=== PATIENT | female | born 1985 | race Caucasian/White ===

== ENCOUNTER 2019-08-25 03:26 | Inpatient (IN) | payer BC ==
[~2019-08-25 03:26] MED LIST: Bupivacaine 0.25% 10 ML SDV ONE
[2019-08-25] MEDS ORDERED: Ondansetron 4 MG/2 ML SDV IVPUSH PRN ×2 (03:32→07:07)
[2019-08-25] MEDS ORDERED: Lidocaine 1% 50 ML MDV INJECT ONE (03:32)
[2019-08-25] MEDS ORDERED: Sodium Chloride 0.9% 10 ML Syringe FLUSH PRN (03:32)
[2019-08-25] MEDS ORDERED: Ampicillin 2 GM in Sodium Chloride 0.9% 100 ML IV ONE (03:32)
[2019-08-25] MEDS ORDERED: Calcium Carbonate 500 MG Tab.Chew PO PRN (03:32)
[2019-08-25] MEDS ORDERED: Nalbuphine 10 MG/ML Syringe IVPUSH PRN (03:32)
[2019-08-25] MEDS ORDERED: Oxytocin/Lactated Ringers 10 UNIT/1,000 ML BAG IV SCH ×2 (03:45)
[2019-08-25] MEDS: Lactated Ringers 1,000 ML IV SCH ×4 (06:17→13:28)
--- NOTE | 2019-08-25 06:39 | PCM.LDHP ---
L&D History of Present Illness - General Date of Service: 08/25/19 Admit Problem/Dx: Patient Status Order with Admit Dx/Problem 08/25/19 03:33 Patient Status [ADT] Routine Admission Diagnosis/Problem Admission Diagnosis/Problem Source of Information: Patient History Limitations: Reports: No Limitations - History of Present Illness Introduction:: Patient is a 34 y/o at 39 3/7 wks who presented in early labor / also supposed to be induced today. Doing well. No major issues - Related Data Allergies/Adverse Reactions: Allergies Allergy/AdvReac Type Severity Reaction Status Date / Time Dairy Products Allergy Diarrhea Verified 08/25/19 03:35 Home Medications: Home Meds Vits #93/Iron Fum/FA [ Formula Tablet] 1 each PO 08/17/19 [History] Past Medical History [employer] History: Reports: , Spontaneous : 4 Para: 2 LMP (Approximate): Other OB/BYN History: polyhydramnios Psychiatric History: Reports: Depression - Infectious Disease History Infectious Disease History: Reports: Chicken Pox - Past Surgical History HEENT Surgical History: Reports: Myringotomy w Tube(s), Oral Surgery (tooth extraction), Other (See Below) Other HEENT Surgeries/Procedures: cauterization of adenoids 1986 Social & Family History - Tobacco Use Smoking Status *Q: Never Smoker - Alcohol Use Alcohol Use History: No - Recreational Drug Use Recreational Drug Use: No H&P Review of Systems - Review of Systems: Review Of Systems: See Below General: Reports: No Symptoms Pulmonary: Reports: No Symptoms Cardiovascular: Reports: No Symptoms Gastrointestinal: Reports: No Symptoms Genitourinary: Reports: No Symptoms Musculoskeletal: Reports: No Symptoms Psychiatric: Reports: Anxiety Neurological: Reports: No Symptoms L&D Exam - Exam Exam: See Below - Vital Signs Vital Signs: Last Vital Signs Temp 36.6 C 08/25/19 03:33 Pulse 84 08/25/19 03:33 Resp 16 08/25/19 03:33 BP 118/81 08/25/19 03:33 Pulse Ox 98 08/25/19 03:33 Weight: 91.989 kg - OB Specific Contraction Intensity: Mild Movement: Active Heart Tones: Present Heart Tones per Min: 125 Heart Rate (FHR) Variability: Moderate (6-25 bmp) Presentation: Vertex - Saha Score Saha Score Cervix Position: Midposition Saha Score Consistency: Soft Saha Score Effacement: 51-70% Saha Score Dilation: 1-2 cm Saha Score Infant's Station: -3 Saha Score Total: 6 - Exam General: Alert, Oriented, Cooperative Lungs: Clear to Auscultation, Normal Respiratory Effort Cardiovascular: Regular Rate, Regular Rhythm GI/Abdominal Exam: Soft, Non-Tender Genitourinary: Normal external exam Extremities: Normal Inspection Skin: Warm, Dry, Intact - Patient Data Lab Results Last 24 hrs: Laboratory Results - last 24 hr 08/25/19 08/25/19 Range/Units 03:50 03:50 WBC 11.53 H (3.98-10.04) K/mm3 RBC 4.32 (3.98-5.22) M/mm3 Hgb 12.1 (11.2-15.7) gm/dl Hct 37.2 (34.1-44.9) % MCV 86.1 (79.4-94.8) fl MCH 28.0 (25.6-32.2) pg MCHC 32.5 (32.2-35.5) g/dl RDW Std Deviation 41.5 (36.4-46.3) fL Plt Count 326 (182-369) K/mm3 MPV 10.5 (9.4-12.3) fl Neut % (Auto) 69.3 (34.0-71.1) % Lymph % (Auto) 21.9 (19.3-51.7) % [place] % (Auto) 7.3 (4.7-12.5) % Eos % (Auto) 0.9 (0.7-5.8) Baso % (Auto) 0.3 (0.1-1.2) % Neut # (Auto) 7.99 H (1.56-6.13) K/mm3 Lymph # (Auto) 2.53 (1.18-3.74) K/mm3 [place] # (Auto) 0.84 H (0.24-0.36) K/mm3 Eos # (Auto) 0.10 (0.04-0.36) K/mm3 Baso # (Auto) 0.03 (0.01-0.08) K/mm3 Blood Type O NEGATIVE Result Diagrams: 08/25/19 03:50 - Problem List (1) 39 weeks gestation of SNOMED Code(s): 57890816 ICD Code: Z3A.39 - 39 WEEKS GESTATION OF Status: Acute Current Visit: Yes (2) Rh negative state in antepartum period SNOMED Code(s): 510659725 ICD Code: O26.899 - OTH RELATED CONDITIONS, UNSPECIFIED TRIMESTER; Z67.91 - UNSPECIFIED BLOOD TYPE, RH NEGATIVE Status: Acute Current Visit: Yes (3) GBS (group B Streptococcus carrier), +RV culture, currently SNOMED Code(s): 5272352625603, 231606772, 0392388765887 ICD Code: O99.820 - STREPTOCOCCUS B CARRIER STATE COMPLICATING Status: Acute Current Visit: Yes (4) Polyhydramnios SNOMED Code(s): 13954467 ICD Code: O40.9XX0 - POLYHYDRAMNIOS, UNSP TRIMESTER, NOT APPLICABLE OR UNSP Status: Acute Current Visit: Yes Qualifiers: Fetus number: single or unspecified fetus Trimester: third trimester Qualified Code(s): O40.3XX0 - Polyhydramnios, third trimester, not applicable or unspecified Problem List Initiated/Reviewed/Updated: Yes Orders Last 24hrs: Active Orders 24 hr Category Date Time Status Patient Status [ADT] Routine ADT 08/25/19 03:33 Active Activity as Tolerated [RC] PFP Care 08/25/19 03:33 Active Communication Order [RC] ASDIRECTED Care 08/25/19 03:33 Active Heart Tones [RC] ASDIRECTED Care 08/25/19 03:33 Active Notify Provider [RC] PFP Care 08/25/19 03:33 Active Notify Provider [RC] PRN Care 08/25/19 03:33 Active Peripheral IV Care [RC] . DIRECTED Care 08/25/19 03:33 Active Urinary Catheter Assessment [RC] ASDIRECTED Care 08/25/19 03:32 Active Vital Signs [RC] PER UNIT ROUTINE Care 08/25/19 03:33 Active Regular Diet [DIET] Diet 08/25/19 Breakfast Active PATIENT RETYPE [BBK] Routine Lab 08/25/19 05:22 Ordered RAPID PLASMA REAGIN,RPR [CHEM] Routine Lab 08/25/19 03:50 Received TYPE AND SCREEN [BBK] Stat Lab 08/25/19 03:50 Results Ampicillin 1 gm Med 08/25/19 07:30 Active Sodium Chloride 0.9% [Normal Saline] 100 ml IV Q4H Calcium Carbonate [Tums] Med 08/25/19 03:32 Active 1,000 mg PO Q2H PRN Lactated Ringers [Ringers, Lactated] 1,000 ml Med 08/25/19 03:45 Active IV ASDIRECTED Nalbuphine [Nubain] Med 08/25/19 03:32 Active 10 mg IVPUSH Q2H PRN Ondansetron [Zofran] Med 08/25/19 03:32 Active 4 mg IVPUSH Q4H PRN Oxytocin/Lactated Ringers [Pitocin in LR 10 Units/1,000 Med 08/25/19 03:45 Active ML] 10 unit in 1,000 ml IV .CONTINUOUS Oxytocin/Lactated Ringers [Pitocin in LR 10 Units/1,000 Med 08/25/19 03:45 Active ML] 10 unit in 1,000 ml IV TITRATE Sodium Chloride 0.9% [Saline Flush] Med 08/25/19 03:32 Active 10 ml FLUSH ASDIRECTED PRN Electronic Heart Tones Ext w TOCO [WOMSER] Oth 08/25/19 03:33 Ordered Routine Electronic Heart Tones Internal [WOMSER] Per Unit Oth 08/25/19 03:33 Ordered Routine Peripheral IV Insertion Adult [OM.PC] Routine Oth 08/25/19 03:33 Ordered Resuscitation Status Routine Resus Stat 08/25/19 03:32 Ordered Medication Orders Calcium Carbonate/Glycine (Tums) 1,000 mg PO Q2H PRN PRN Reason: Indigestion Ampicillin Sodium 1 gm/ Sodium (Chloride) 100 mls @ 200 mls/hr IV Q4H CLAIR Oxytocin/Lactated Ringer's (Pitocin In Lr 10 Units/1,000 Ml) 10 unit in 1,000 mls @ 12 mls/hr IV TITRATE CLAIR; Protocol Last Admin: 08/25/19 06:18 Dose: 2 munits/min, 12 mls/hr Documented by: BENJA Oxytocin/Lactated Ringer's (Pitocin In Lr 10 Units/1,000 Ml) 10 unit in 1,000 mls @ 100 mls/hr IV .CONTINUOUS CLAIR; Protocol Lactated Ringer's (Ringers, Lactated) 1,000 mls @ 100 mls/hr IV ASDIRECTED CLAIR Last Admin: 08/25/19 06:17 Dose: 100 mls/hr Documented by: BENJA Nalbuphine HCl (Nubain) 10 mg IVPUSH Q2H PRN PRN Reason: Pain Ondansetron HCl (Zofran) 4 mg IVPUSH Q4H PRN PRN Reason: Nausea/Vomiting Sodium Chloride (Saline Flush) 10 ml FLUSH ASDIRECTED PRN PRN Reason: Keep Vein Open Assessment/Plan Comment:: * Labs done * Ampicillin for GBS positive status * Was noted to have mild polyhydramnios around 36 weeks, has normalized on recent scan * Pitocin for augmentation, AROM when safe/able * Pain management per patient preference * Anticipate * Assess for need of additional Rhogam after delivery
[2019-08-25] MEDS ORDERED: ePHEDrine 50 MG/ML SDV IVPUSH PRN (07:07)
[2019-08-25] MEDS ORDERED: fentaNYL 100 MCG/2 ML SDV EPIDUR PRN (07:07)
--- NOTE | 2019-08-25 07:09 | PCM.PREANE ---
Preanesthetic Assessment - Anesthesia/Transfusion/Family Hx Anesthesia History: Prior Anesthesia Without Reaction Family History of Anesthesia Reaction: No Transfusion History: No Prior Transfusion(s) Intubation History: Unknown - Review of Systems General: No Symptoms (sore throat/seasonal allergies.) Pulmonary: No Symptoms Cardiovascular: Palpitations Gastrointestinal: No Symptoms (GERD with ) Neurological: No Symptoms Other: Reports: Sinus Problem (seasonal allergies), Depression - Physical Assessment NPO Status Date: 08/25/19 NPO Status Time: 07:30 Vital Signs: Last Vital Signs Temp 36.6 C 08/25/19 03:33 Pulse 84 08/25/19 03:33 Resp 16 08/25/19 03:33 BP 118/81 08/25/19 03:33 Pulse Ox 98 08/25/19 03:33 Height: 1.63 m Weight: 91.989 kg ASA Class: 2 Mental Status: Alert & Oriented x3 Airway Class: Mallampati = 2 Dentition: Reports: Normal Dentition, Caries Thyro-Mental Finger Breadths: 3 Mouth Opening Finger Breadths: 3 ROM/Head Extension: Full Lungs: Clear to Auscultation, Normal Respiratory Effort Cardiovascular: Regular Rate, Regular Rhythm, No Murmurs - Lab Values: Laboratory Last Values WBC 11.53 K/mm3 (3.98-10.04) H 08/25/19 03:50 RBC 4.32 M/mm3 (3.98-5.22) 08/25/19 03:50 Hgb 12.1 gm/dl (11.2-15.7) 08/25/19 03:50 Hct 37.2 % (34.1-44.9) 08/25/19 03:50 MCV 86.1 fl (79.4-94.8) 08/25/19 03:50 MCH 28.0 pg (25.6-32.2) 08/25/19 03:50 MCHC 32.5 g/dl (32.2-35.5) 08/25/19 03:50 RDW Std Deviation 41.5 fL (36.4-46.3) 08/25/19 03:50 Plt Count 326 K/mm3 (182-369) 08/25/19 03:50 MPV 10.5 fl (9.4-12.3) 08/25/19 03:50 Neut % (Auto) 69.3 % (34.0-71.1) 08/25/19 03:50 Lymph % (Auto) 21.9 % (19.3-51.7) 08/25/19 03:50 [place] % (Auto) 7.3 % (4.7-12.5) 08/25/19 03:50 Eos % (Auto) 0.9 (0.7-5.8) 08/25/19 03:50 Baso % (Auto) 0.3 % (0.1-1.2) 08/25/19 03:50 Neut # (Auto) 7.99 K/mm3 (1.56-6.13) H 08/25/19 03:50 Lymph # (Auto) 2.53 K/mm3 (1.18-3.74) 08/25/19 03:50 [place] # (Auto) 0.84 K/mm3 (0.24-0.36) H 08/25/19 03:50 Eos # (Auto) 0.10 K/mm3 (0.04-0.36) 08/25/19 03:50 Baso # (Auto) 0.03 K/mm3 (0.01-0.08) 08/25/19 03:50 Blood Type O NEGATIVE 08/25/19 03:50 Above labs reviewed and noted and within acceptable ranges to proceed with epidural if desired. - Allergies Allergies/Adverse Reactions: Allergies Allergy/AdvReac Type Severity Reaction Status Date / Time Dairy Products Allergy Diarrhea Verified 08/25/19 03:35 - Anesthesia Plan Pre-Op Medication Ordered: None - Acknowledgements Anesthesia Type Planned: Epidural Pt an Appropriate Candidate for the Planned Anesthesia: Yes Alternatives and Risks of Anesthesia Discussed w Pt/Guardian: Yes Pt/Guardian Understands and Agrees with Anesthesia Plan: Yes PreAnesthesia Questionnaire [employer] History: Reports: , Spontaneous , Other (See Below) Other OB/BYN History: polyhydramnios Psychiatric History: Reports: Depression Immunologic History: Reports: Other (See Below) Other Immunologic History: EBV mono - Infectious Disease History Infectious Disease History: Reports: Chicken Pox - Past Surgical History HEENT Surgical History: Reports: Myringotomy w Tube(s), Oral Surgery, Other (See Below) Other HEENT Surgeries/Procedures: cauterization of adenoids 1986 - SUBSTANCE USE Smoking Status *Q: Never Smoker Recreational Drug Use History: No - HOME MEDS Home Medications: Home Meds Vits #93/Iron Fum/FA [ Formula Tablet] 1 each PO 08/17/19 [History] - CURRENT (IN HOUSE) MEDS Current Meds: Current Medications Calcium Carbonate/Glycine (Tums) 1,000 mg PO Q2H PRN PRN Reason: Indigestion Ampicillin Sodium 1 gm/ Sodium (Chloride) 100 mls @ 200 mls/hr IV Q4H CLAIR Oxytocin/Lactated Ringer's (Pitocin In Lr 10 Units/1,000 Ml) 10 unit in 1,000 mls @ 12 mls/hr IV TITRATE CLAIR; Protocol Last Titration: 08/25/19 06:51 Dose: 4 munits/min, 24 mls/hr Documented by: Oxytocin/Lactated Ringer's (Pitocin In Lr 10 Units/1,000 Ml) 10 unit in 1,000 mls @ 100 mls/hr IV .CONTINUOUS CLAIR; Protocol Lactated Ringer's (Ringers, Lactated) 1,000 mls @ 100 mls/hr IV ASDIRECTED CLAIR Last Admin: 08/25/19 06:17 Dose: 100 mls/hr Documented by: Nalbuphine HCl (Nubain) 10 mg IVPUSH Q2H PRN PRN Reason: Pain Ondansetron HCl (Zofran) 4 mg IVPUSH Q4H PRN PRN Reason: Nausea/Vomiting Sodium Chloride (Saline Flush) 10 ml FLUSH ASDIRECTED PRN PRN Reason: Keep Vein Open Discontinued Medications Ampicillin Sodium 2 gm/ Sodium (Chloride) 100 mls @ 200 mls/hr IV ONETIME ONE Stop: 08/25/19 04:01 Last Admin: 08/25/19 04:05 Dose: 200 mls/hr Documented by: Lidocaine HCl (Xylocaine 1%) 50 ml INJECT ONETIME ONE Stop: 08/25/19 03:33
[2019-08-25] MEDS ORDERED: Phenylephrine 1 MG in Sodium Chloride 0.9% 10 ML IV SCH (07:15)
[2019-08-25] MEDS ORDERED: Bupivacaine/fentaNYL/NS 100 ML Bag EPIDUR SCH (07:15)
[2019-08-25] MEDS: Ampicillin 1 GM in Sodium Chloride 0.9% 100 ML IV SCH ×2 (08:40→12:23)
--- NOTE | 2019-08-25 17:31 | PCM.DEL ---
L & D Note - General Info Date of Service: 08/25/19 - Delivery Note Labor: Induced by ARM, Induced by Oxytocin Delivery Outcome: Livebirth Infant Delivery Mode: Spontaneous Presentation: Right Occiput Anterior (ALVARO) Nuchal Cord: None Anesthesia Type: Epidural Amniotic Fluid Description: Clear Episiotomy Type: None Laceration: 2nd Degree Suture type: Vicryl Suture size: 2-0 Placenta: Intact, Spontaneous Cord: 3 Vessels Estimated Blood Loss: 200 Resuscitation Needed: Yes [place]: Bulb Syringe, Stimulated, Warmed, [place] Used Delivery Comments (Free Text/Narrative):: Patient found to be complete and began pushing. With maternal pushing effort head delivered from an ALVARO presentation. No nuchal cord present. With gentle downward traction the shoulders and body delivered. Infant placed on maternal abdomen. Cord clamped and cut. Cord blood obtained. Placenta allowed time to separate and expelled intact. Inspection of the perineum showed a 2nd degree laceration which was repaired with a 2-0 Vicryl in the typical fashion - General Info Date of Service: 08/25/19 - Patient Data Vitals - Most Recent: Last Vital Signs Temp 36.6 C 08/25/19 03:33 Pulse 84 08/25/19 03:33 Resp 16 08/25/19 03:33 BP 118/81 08/25/19 03:33 Pulse Ox 98 08/25/19 03:33 Weight - Most Recent: 91.989 kg I&O - Last 24 Hours: Intake & Output 08/25/19 08/25/19 08/25/19 06:59 14:59 22:59 Intake Total 100 3500 Output Total 100 Balance 100 -100 3500 Lab Results Last 24 Hours: Laboratory Results - last 24 hr 08/25/19 08/25/19 Range/Units 03:50 03:50 WBC 11.53 H (3.98-10.04) K/mm3 RBC 4.32 (3.98-5.22) M/mm3 Hgb 12.1 (11.2-15.7) gm/dl Hct 37.2 (34.1-44.9) % MCV 86.1 (79.4-94.8) fl MCH 28.0 (25.6-32.2) pg MCHC 32.5 (32.2-35.5) g/dl RDW Std Deviation 41.5 (36.4-46.3) fL Plt Count 326 (182-369) K/mm3 MPV 10.5 (9.4-12.3) fl Neut % (Auto) 69.3 (34.0-71.1) % Lymph % (Auto) 21.9 (19.3-51.7) % [place] % (Auto) 7.3 (4.7-12.5) % Eos % (Auto) 0.9 (0.7-5.8) Baso % (Auto) 0.3 (0.1-1.2) % Neut # (Auto) 7.99 H (1.56-6.13) K/mm3 Lymph # (Auto) 2.53 (1.18-3.74) K/mm3 [place] # (Auto) 0.84 H (0.24-0.36) K/mm3 Eos # (Auto) 0.10 (0.04-0.36) K/mm3 Baso # (Auto) 0.03 (0.01-0.08) K/mm3 Blood Type O NEGATIVE Gel Antibody Screen Positive Med Orders - Current: Current Medications Calcium Carbonate/Glycine (Tums) 1,000 mg PO Q2H PRN PRN Reason: Indigestion Ephedrine Sulfate (Ephedrine Sulfate) 5 mg IVPUSH ASDIRECTED PRN PRN Reason: Hypotension Fentanyl (Sublimaze) 100 mcg EPIDUR Q3H PRN PRN Reason: Pain Last Admin: 08/25/19 09:42 Dose: 100 mcg Documented by: Fentanyl/Bupivacaine HCl (Fentanyl/Bupivacaine/Ns 2 Mcg-0.125% 100 Ml) 100 ml EPIDUR ASDIRECTED CLAIR Last Admin: 08/25/19 09:41 Dose: 100 ml Documented by: Ampicillin Sodium 1 gm/ Sodium (Chloride) 100 mls @ 200 mls/hr IV Q4H CLAIR Last Admin: 08/25/19 12:23 Dose: 200 mls/hr Documented by: Oxytocin/Lactated Ringer's (Pitocin In Lr 10 Units/1,000 Ml) 10 unit in 1,000 mls @ 12 mls/hr IV TITRATE CLAIR; Protocol Last Titration: 08/25/19 14:50 Dose: 83.33 munits/min, 500 mls/hr Documented by: Oxytocin/Lactated Ringer's (Pitocin In Lr 10 Units/1,000 Ml) 10 unit in 1,000 mls @ 100 mls/hr IV .CONTINUOUS CLAIR; Protocol Lactated Ringer's (Ringers, Lactated) 1,000 mls @ 100 mls/hr IV ASDIRECTED CLAIR Last Admin: 08/25/19 13:28 Dose: 999 mls/hr Documented by: Phenylephrine HCl 1 mg/ Sodium (Chloride) 10.1 mls @ 1 mls/sec IV TITRATE CLAIR; Protocol Nalbuphine HCl (Nubain) 10 mg IVPUSH Q2H PRN PRN Reason: Pain Last Admin: 08/25/19 10:30 Dose: 10 mg Documented by: Ondansetron HCl (Zofran) 4 mg IVPUSH Q4H PRN PRN Reason: Nausea/Vomiting Ondansetron HCl (Zofran) 4 mg IVPUSH ONETIME PRN PRN Reason: Nausea/Vomiting Sodium Chloride (Saline Flush) 10 ml FLUSH ASDIRECTED PRN PRN Reason: Keep Vein Open Discontinued Medications Ampicillin Sodium 2 gm/ Sodium (Chloride) 100 mls @ 200 mls/hr IV ONETIME ONE Stop: 08/25/19 04:01 Last Admin: 08/25/19 04:05 Dose: 200 mls/hr Documented by: Lidocaine HCl (Xylocaine 1%) 50 ml INJECT ONETIME ONE Stop: 08/25/19 03:33 - Problem List & Annotations (1) 39 weeks gestation of SNOMED Code(s): 62786104 Code(s): Z3A.39 - 39 WEEKS GESTATION OF Status: Acute Current Visit: Yes (2) Rh negative state in antepartum period SNOMED Code(s): 700421301 Code(s): O26.899 - OTH RELATED CONDITIONS, UNSPECIFIED TRIMESTER; Z67.91 - UNSPECIFIED BLOOD TYPE, RH NEGATIVE Status: Acute Current Visit: Y es (3) GBS (group B Streptococcus carrier), +RV culture, currently SNOMED Code(s): 7770478912943, 864431604, 4587395426703 Code(s): O99.820 - STREPTOCOCCUS B CARRIER STATE COMPLICATING Status: Acute Current Visit: Yes (4) Polyhydramnios SNOMED Code(s): 00403322 Code(s): O40.9XX0 - POLYHYDRAMNIOS, UNSP TRIMESTER, NOT APPLICABLE OR UNSP Status: Acute Current Visit: Yes Qualifiers: Fetus number: single or unspecified fetus Trimester: third trimester Qualified Code(s): O40.3XX0 - Polyhydramnios, third trimester, not applicable or unspecified (5) Meconium stained amniotic fluid, delivered, current hospitalization SNOMED Code(s): 669073480, 789646427 Code(s): O77.0 - LABOR AND DELIVERY COMPLICATED BY MECONIUM IN AMNIOTIC FLUID Status: Acute Current Visit: Yes (6) Vaginal delivery SNOMED Code(s): 772285375 Code(s): O80 - ENCOUNTER FOR FULL-TERM UNCOMPLICATED DELIVERY Status: Acute Current Visit: Yes - Problem List Review Problem List Initiated/Reviewed/Updated: Yes - My Orders Last 24 Hours: My Active Orders 08/25/19 03:32 Urinary Catheter Assessment [RC] ASDIRECTED Calcium Carbonate [Tums] 1,000 mg PO Q2H PRN Nalbuphine [Nubain] 10 mg IVPUSH Q2H PRN Ondansetron [Zofran] 4 mg IVPUSH Q4H PRN Sodium Chloride 0.9% [Saline Flush] 10 ml FLUSH ASDIRECTED PRN Resuscitation Status Routine 08/25/19 03:33 Patient Status [ADT] Routine Activity as Tolerated [RC] PFP Communication Order [RC] ASDIRECTED Heart Tones [RC] ASDIRECTED Notify Provider [RC] PFP Notify Provider [RC] PRN Peripheral IV Care [RC] . DIRECTED Vital Signs [RC] PER UNIT ROUTINE Electronic Heart Tones Ext w TOCO [WOMSER] Routine Electronic Heart Tones Internal [WOMSER] Per Unit Routine Peripheral IV Insertion Adult [OM.PC] Routine 08/25/19 03:45 Lactated Ringers [Ringers, Lactated] 1,000 ml IV ASDIRECTED Oxytocin/Lactated Ringers [Pitocin in LR 10 Units/1,000 ML] 10 unit in 1,000 ml IV .CONTINUOUS Oxytocin/Lactated Ringers [Pitocin in LR 10 Units/1,000 ML] 10 unit in 1,000 ml IV TITRATE 08/25/19 03:50 ANTIBODY IDENTIFICATION [BBK] Stat RAPID PLASMA REAGIN,RPR [CHEM] Routine TYPE AND SCREEN [BBK] Stat 08/25/19 Breakfast Regular Diet [DIET] 08/25/19 07:30 Ampicillin 1 gm Sodium Chloride 0.9% [Normal Saline] 100 ml IV Q4H 08/25/19 17:26 Patient Status Manage Transfer [TRANSFER] Routine - Assessment Assessment:: PPD#0 - Plan Plan:: * Routine cares * Breast feeding * Discharge home in 1-2 days * Assess for need of additional Rhogam after delivery
[2019-08-25] MEDS ORDERED: Benzocaine/Menthol 20%-0.5% Spray 56 GM Canister TOP PRN (18:14)
[2019-08-25] MEDS ORDERED: Acetaminophen 325 MG Tab PO PRN (18:14)
[2019-08-25] MEDS: Witch Hazel Medicated Pads 40/Jar TOP PRN (18:20)
[2019-08-25] MEDS: Docusate Sodium 100 MG Cap PO PRN (20:48)
[2019-08-26] MEDS: Ibuprofen 600 MG Tab PO PRN ×2 (02:59→12:25)
--- NOTE | 2019-08-26 06:53 | PCM.PNPP ---
- General Info Date of Service: 08/26/19 Functional Status: Reports: Pain Controlled, Tolerating Diet, Ambulating, Urinating - Review of Systems General: Reports: No Symptoms Pulmonary: Reports: No Symptoms Cardiovascular: Reports: No Symptoms Gastrointestinal: Reports: No Symptoms Genitourinary: Reports: No Symptoms Musculoskeletal: Reports: No Symptoms Neurological: Reports: No Symptoms - Patient Data Vital Signs - Most Recent: Last Vital Signs Temp 36.7 C 08/26/19 02:57 Pulse 81 08/26/19 02:57 Resp 14 08/26/19 02:57 BP 104/68 08/26/19 02:57 Pulse Ox 97 08/26/19 02:57 Weight - Most Recent: 91.989 kg I&O - Last 24 Hours: Intake & Output 08/25/19 08/25/19 08/26/19 14:59 22:59 06:59 Intake Total 3500 Output Total 100 Balance -100 3500 Lab Results - Last 24 Hours: Laboratory Results - last 24 hr 08/25/19 Range/Units 03:50 Blood Type O NEGATIVE Gel Antibody Screen Positive Med Orders - Current: Current Medications Acetaminophen (Tylenol) 650 mg PO Q4H PRN PRN Reason: mild pain or fever Last Admin: 08/25/19 20:48 Dose: 650 mg Documented by: Benzocaine/Menthol (Dermoplast Pain Relief [place]) 0 gm TOP ASDIRECTED PRN PRN Reason: Perineal Comfort Measure Last Admin: 08/25/19 18:20 Dose: 1 can Documented by: Docusate Sodium (Colace) 100 mg PO BID PRN PRN Reason: Constipation Last Admin: 08/25/19 20:48 Dose: 100 mg Documented by: Ibuprofen (Motrin) 600 mg PO Q4H PRN PRN Reason: Mild pain or fever Last Admin: 08/26/19 02:59 Dose: 600 mg Documented by: Gus Suh (Tucks) 1 pad TOP ASDIRECTED PRN PRN Reason: Perineal Comfort Measure Last Admin: 08/25/19 18:20 Dose: 1 tub Documented by: Discontinued Medications Calcium Carbonate/Glycine (Tums) 1,000 mg PO Q2H PRN PRN Reason: Indigestion Ephedrine Sulfate (Ephedrine Sulfate) 5 mg IVPUSH ASDIRECTED PRN PRN Reason: Hypotension Fentanyl (Sublimaze) 100 mcg EPIDUR Q3H PRN PRN Reason: Pain Last Admin: 08/25/19 09:42 Dose: 100 mcg Documented by: Fentanyl/Bupivacaine HCl (Fentanyl/Bupivacaine/Ns 2 Mcg-0.125% 100 Ml) 100 ml EPIDUR ASDIRECTED CLAIR Last Admin: 08/25/19 09:41 Dose: 100 ml Documented by: Ampicillin Sodium 2 gm/ Sodium (Chloride) 100 mls @ 200 mls/hr IV ONETIME ONE Stop: 08/25/19 04:01 Last Admin: 08/25/19 04:05 Dose: 200 mls/hr Documented by: Ampicillin Sodium 1 gm/ Sodium (Chloride) 100 mls @ 200 mls/hr IV Q4H CLAIR Last Admin: 08/25/19 12:23 Dose: 200 mls/hr Documented by: Oxytocin/Lactated Ringer's (Pitocin In Lr 10 Units/1,000 Ml) 10 unit in 1,000 mls @ 12 mls/hr IV TITRATE CLAIR; Protocol Last Titration: 08/25/19 14:50 Dose: 83.33 munits/min, 500 mls/hr Documented by: Oxytocin/Lactated Ringer's (Pitocin In Lr 10 Units/1,000 Ml) 10 unit in 1,000 mls @ 100 mls/hr IV .CONTINUOUS CLAIR; Protocol Lactated Ringer's (Ringers, Lactated) 1,000 mls @ 100 mls/hr IV ASDIRECTED CLAIR Last Admin: 08/25/19 13:28 Dose: 999 mls/hr Documented by: Phenylephrine HCl 1 mg/ Sodium (Chloride) 10.1 mls @ 1 mls/sec IV TITRATE CLAIR; Protocol Lidocaine HCl (Xylocaine 1%) 50 ml INJECT ONETIME ONE Stop: 08/25/19 03:33 Last Admin: 08/26/19 03:55 Dose: Not Given Documented by: Nalbuphine HCl (Nubain) 10 mg IVPUSH Q2H PRN PRN Reason: Pain Last Admin: 08/25/19 10:30 Dose: 10 mg Documented by: Ondansetron HCl (Zofran) 4 mg IVPUSH Q4H PRN PRN Reason: Nausea/Vomiting Ondansetron HCl (Zofran) 4 mg IVPUSH ONETIME PRN PRN Reason: Nausea/Vomiting Sodium Chloride (Saline Flush) 10 ml FLUSH ASDIRECTED PRN PRN Reason: Keep Vein Open - Interaction Disposition, : in Room with Family Interaction: Holding Infant Feeding: Bottle Fed , Breastfed ; Nursed Well Support Person: - Recovery Exam Fundal Tone: Firm Fundal Level: At Umbilicus Fundal Placement: Midline Lochia Amount: Small, Moderate Lochia Color: Rubra/Red Perineum Description: Other (see below) Other Perinuem Description: 2 nd degree repaired Episiotomy/Laceration: Approximated Bladder Status: Voiding Urinary Elimination: Voided - Exam General: Alert, Oriented, Cooperative GI/Abdominal Exam: Soft, Non-Tender Extremities: Normal Inspection Skin: Warm, Dry, Intact - Problem List & Annotations (1) 39 weeks gestation of SNOMED Code(s): 94641056 Code(s): Z3A.39 - 39 WEEKS GESTATION OF Status: Acute Current Visit: Yes (2) Rh negative state in antepartum period SNOMED Code(s): 223428305 Code(s): O26.899 - OTH RELATED CONDITIONS, UNSPECIFIED TRIMESTER; Z67.91 - UNSPECIFIED BLOOD TYPE, RH NEGATIVE Status: Acute Current Visit: Yes (3) GBS (group B Streptococcus carrier), +RV culture, currently SNOMED Code(s): 2215015497321, 001800674, 0678247221936 Code(s): O99.820 - STREPTOCOCCUS B CARRIER STATE COMPLICATING Status: Acute Current Visit: Yes (4) Polyhydramnios SNOMED Code(s): 09075441 Code(s): O40.9XX0 - POLYHYDRAMNIOS, UNSP TRIMESTER, NOT APPLICABLE OR UNSP Status: Acute Current Visit: Yes Qualifiers: Fetus number: single or unspecified fetus Trimester: third trimester Qualified Code(s): O40.3XX0 - Polyhydramnios, third trimester, not applicable or unspecified (5) Meconium stained amniotic fluid, delivered, current hospitalization SNOMED Code(s): 711966516, 452308401 Code(s): O77.0 - LABOR AND DELIVERY COMPLICATED BY MECONIUM IN AMNIOTIC FLUID Status: Acute Current Visit: Yes (6) Vaginal delivery SNOMED Code(s): 059220669 Code(s): O80 - ENCOUNTER FOR FULL-TERM UNCOMPLICATED DELIVERY Status: Acute Current Visit: Yes - Problem List Review Problem List Initiated/Reviewed/Updated: Yes - My Orders Last 24 Hours: My Active Orders 08/25/19 Dinner Regular Diet [DIET] 08/25/19 18:14 Acetaminophen [Tylenol] 650 mg PO Q4H PRN Benzocaine/Menthol [Dermoplast Pain Relief [place]] See Dose Instructions TOP ASDIRECTED PRN Docusate Sodium [Colace] 100 mg PO BID PRN Ibuprofen [Motrin] 600 mg PO Q4H PRN witch Mari [Tucks] 1 pad TOP ASDIRECTED PRN Heat Therapy [OM.PC] PRN 08/25/19 18:14 Activity as Tolerated [RC] PER UNIT ROUTINE Vital Signs [RC] 21,03,09,15 Assess Lochia [WOMSER] Per Unit Routine Assess Uterine Involution [WOMSER] Per Unit Routine Breast Pump [WOMSER] Per Unit Routine Ice Therapy [OM.PC] Per Unit Routine Perineal Care [OM.PC] Per Unit Routine Peripheral IV Discontinue [OM.PC] Routine Sitz Bath [OM.PC] Per Unit Routine 08/26/19 18:14 Heat Therapy [OM.PC] PRN - Assessment Assessment:: PPD#1 - Plan Plan:: * Routine cares * Breast feeding with some supplementation * Discharge home likely tomorrow due to Peds monitoring glucose * No need for Rhogam, baby Rh negative
[2019-08-26] MEDS: Ampicillin 1 GM in Sodium Chloride 0.9% 100 ML IV SCH (11:26)
[2019-08-26] MEDS: Docusate Sodium 100 MG Cap PO PRN (12:25)
[2019-08-26] MEDS: Witch Hazel Medicated Pads 40/Jar TOP PRN (13:58)
--- NOTE | 2019-08-26 15:40 | PCM.DCSUM1 ---
Discharge Summary - Discharge Data Discharge Date: 08/26/19 Discharge Disposition: Home, Self-Care 01 Condition: Good - Referral to Home Health Primary Care Physician: Deanna Flores MD - Discharge Diagnosis/Problem(s) (1) 39 weeks gestation of SNOMED Code(s): 73951028 ICD Code: Z3A.39 - 39 WEEKS GESTATION OF Status: Acute (2) Rh negative state in antepartum period SNOMED Code(s): 870546237 ICD Code: O26.899 - OTH RELATED CONDITIONS, UNSPECIFIED TRIMESTER; Z67.91 - UNSPECIFIED BLOOD TYPE, RH NEGATIVE Status: Acute (3) GBS (group B Streptococcus carrier), +RV culture, currently SNOMED Code(s): 2899334180570, 485673961, 5982413148143 ICD Code: O99.820 - STREPTOCOCCUS B CARRIER STATE COMPLICATING Status: Acute (4) Polyhydramnios SNOMED Code(s): 33417761 ICD Code: O40.9XX0 - POLYHYDRAMNIOS, UNSP TRIMESTER, NOT APPLICABLE OR UNSP Status: Acute Qualifiers: Fetus number: single or unspecified fetus Trimester: third trimester Qualified Code(s): O40.3XX0 - Polyhydramnios, third trimester, not applicable or unspecified (5) Meconium stained amniotic fluid, delivered, current hospitalization SNOMED Code(s): 962130636, 605312769 ICD Code: O77.0 - LABOR AND DELIVERY COMPLICATED BY MECONIUM IN AMNIOTIC FLUID Status: Acute (6) Vaginal delivery SNOMED Code(s): 269591785 ICD Code: O80 - ENCOUNTER FOR FULL-TERM UNCOMPLICATED DELIVERY Status: Acute - Patient Summary/Data Complications: None Consults: None Recommended Follow-up Testing/Procedures: Follow up in 3 weeks Hospital Course: Patient is a 34 y/o at 39 3/7 wks who presented for IOL. Done with pitocin and AROM. PRogressed well to complete dilation and underwent an uncomplicated . See delivery note. did well and was discharged home on PPD#1 - Patient Instructions Diet: Regular Diet as Tolerated Activity: As Tolerated Activity, Other: Pelvic rest for 6 weeks Driving: May Drive Today Showering/Bathing: May Shower Showering/Bathing, Other: May Bathe Notify Provider of: Fever, Increased Pain, Swelling and Redness, Drainage, Nausea and/or Vomiting - Discharge Plan *PRESCRIPTION DRUG MONITORING PROGRAM REVIEWED*: No *COPY OF PRESCRIPTION DRUG MONITORING REPORT IN PATIENT DELMAR: No Home Medications: Home Meds Vits #93/Iron Fum/FA [ Formula Tablet] 1 each PO 08/17/19 [History] Docusate Sodium [Colace] 100 mg PO BID PRN cap 08/26/19 [Rx] Ibuprofen [Motrin] 600 mg PO Q4H PRN tablet 08/26/19 [Rx] Patient Handouts: Breast Pumping Tips, and Self-Care, Care After Vaginal Delivery Referrals: Deanna Flores MD [Primary Care Provider] - (3 weeks for check ) - Discharge Summary/Plan Comment DC Time >30 min.: No - Patient Data Vitals - Most Recent: Last Vital Signs Temp 36.4 C 08/26/19 09:40 Pulse 87 08/26/19 09:40 Resp 14 08/26/19 09:40 BP 126/67 08/26/19 09:40 Pulse Ox 100 08/26/19 09:40 Weight - Most Recent: 91.989 kg Med Orders - Current: Current Medications Acetaminophen (Tylenol) 650 mg PO Q4H PRN PRN Reason: mild pain or fever Last Admin: 08/25/19 20:48 Dose: 650 mg Documented by: Benzocaine/Menthol (Dermoplast Pain Relief [place]) 0 gm TOP ASDIRECTED PRN PRN Reason: Perineal Comfort Measure Last Admin: 08/25/19 18:20 Dose: 1 can Documented by: Docusate Sodium (Colace) 100 mg PO BID PRN PRN Reason: Constipation Last Admin: 08/26/19 12:25 Dose: 100 mg Documented by: Ibuprofen (Motrin) 600 mg PO Q4H PRN PRN Reason: Mild pain or fever Last Admin: 08/26/19 12:25 Dose: 600 mg Documented by: Gus Chatman) 1 pad TOP ASDIRECTED PRN PRN Reason: Perineal Comfort Measure Last Admin: 08/26/19 13:58 Dose: 1 container Documented by: Discontinued Medications Bupivacaine HCl (Sensorcaine-Mpf 0.25%) 10 ml .ROUTE .STK-MED ONE Stop: 08/25/19 00:01 Calcium Carbonate/Glycine (Tums) 1,000 mg PO Q2H PRN PRN Reason: Indigestion Ephedrine Sulfate (Ephedrine Sulfate) 5 mg IVPUSH ASDIRECTED PRN PRN Reason: Hypotension Fentanyl (Sublimaze) 100 mcg EPIDUR Q3H PRN PRN Reason: Pain Last Admin: 08/25/19 09:42 Dose: 100 mcg Documented by: Fentanyl/Bupivacaine HCl (Fentanyl/Bupivacaine/Ns 2 Mcg-0.125% 100 Ml) 100 ml EPIDUR ASDIRECTED CLAIR Last Admin: 08/25/19 09:41 Dose: 100 ml Documented by: Ampicillin Sodium 2 gm/ Sodium (Chloride) 100 mls @ 200 mls/hr IV ONETIME ONE Stop: 08/25/19 04:01 Last Admin: 08/25/19 04:05 Dose: 200 mls/hr Documented by: Ampicillin Sodium 1 gm/ Sodium (Chloride) 100 mls @ 200 mls/hr IV Q4H CLAIR Last Admin: 08/26/19 11:26 Dose: Not Given Documented by: Oxytocin/Lactated Ringer's (Pitocin In Lr 10 Units/1,000 Ml) 10 unit in 1,000 mls @ 12 mls/hr IV TITRATE CLAIR; Protocol Last Titration: 08/25/19 14:50 Dose: 83.33 munits/min, 500 mls/hr Documented by: Oxytocin/Lactated Ringer's (Pitocin In Lr 10 Units/1,000 Ml) 10 unit in 1,000 mls @ 100 mls/hr IV .CONTINUOUS CLAIR; Protocol Lactated Ringer's (Ringers, Lactated) 1,000 mls @ 100 mls/hr IV ASDIRECTED CLAIR Last Admin: 08/25/19 13:28 Dose: 999 mls/hr Documented by: Phenylephrine HCl 1 mg/ Sodium (Chloride) 10.1 mls @ 1 mls/sec IV TITRATE CLAIR; Protocol Lidocaine HCl (Xylocaine 1%) 50 ml INJECT ONETIME ONE Stop: 08/25/19 03:33 Last Admin: 08/26/19 03:55 Dose: Not Given Documented by: Nalbuphine HCl (Nubain) 10 mg IVPUSH Q2H PRN PRN Reason: Pain Last Admin: 08/25/19 10:30 Dose: 10 mg Documented by: Ondansetron HCl (Zofran) 4 mg IVPUSH Q4H PRN PRN Reason: Nausea/Vomiting Ondansetron HCl (Zofran) 4 mg IVPUSH ONETIME PRN PRN Reason: Nausea/Vomiting Sodium Chloride (Saline Flush) 10 ml FLUSH ASDIRECTED PRN PRN Reason: Keep Vein Open
== END 2019-08-26 16:37 | disposition home or self-care (01) | DRG 560 ==
LOC: JD.OB 03:26 → OBSVTOIN 14:48 → JD.OB 14:49
PROVIDERS: ADMIT Obstetrics & Gynecology; ATTEND Obstetrics & Gynecology
PROC: 10E0XZZ Delivery of Products of Conception, External Approach (ICD-10-PCS; principal; 2019-08-25)
PROC: 10907ZC Drainage of Amniotic Fluid, Therapeutic from Products of Conception, Via Natural or Artificial Opening (ICD-10-PCS; 2019-08-25)
PROC: 3E033VJ Introduction of Other Hormone into Peripheral Vein, Percutaneous Approach (ICD-10-PCS; 2019-08-25)
PROC: 0KQM0ZZ Repair Perineum Muscle, Open Approach (ICD-10-PCS; 2019-08-25)
PROC: 3E0R3BZ Introduction of Anesthetic Agent into Spinal Canal, Percutaneous Approach (ICD-10-PCS; 2019-08-25)
PROC: 00HU33Z Insertion of Infusion Device into Spinal Canal, Percutaneous Approach (ICD-10-PCS; 2019-08-25)
DX: O40.3XX0 Polyhydramnios, third trimester, not applicable or unspecified (principal); O99.824 Streptococcus B carrier state complicating childbirth; Z3A.39 39 weeks gestation of pregnancy; Z37.0 Single live birth; O77.0 Labor and delivery complicated by meconium in amniotic fluid; O70.1 Second degree perineal laceration during delivery
CPT/HCPCS: 01967; 36415; 51701; 59025; 59409; 85025; 86592; 86850; 86870; 86900; 86901; A9270-GY; J0290; J2300; J2590; J3010; J3490; J7050; J7120